=== PATIENT | female | born 1950 | race Caucasian/White ===

== ENCOUNTER 2020-11-01 15:43 | Emergency (ER) | payer MEDICARE, SELFPAY ==
[2020-11-01 16:00] VITALS: BP 184/87; PULSE 68; RESP 19; TEMP 36.7; O2SAT 98; BMI 31.1
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
[2020-11-01 18:23] VITALS: BP 188/88; PULSE 70; RESP 18; TEMP 36.9; O2SAT 96
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
[2020-11-01 19:30] VITALS: BP 191/86; PULSE 66; RESP 16; O2SAT 96
[2020-11-01] MEDS: ACETAMINOPHEN 325 MG TABLET 975 MG PO (19:40)
--- NOTE | 2020-11-01 20:22 | PC.NURSE ---
Pt noted with SBP 190's, pt denied HU. Reported pain to hands with movement. Dr Lantigua notified, plan to medicate with tylenol and defer discharge. On reassessment, BP 166/78. Pt cleared for discharge by Dr Lantigua.
[2020-11-01 20:23] VITALS: BP 166/78; PULSE 66; RESP 16; O2SAT 97
== END 2020-11-01 20:26 | disposition home or self-care (01) ==
PROVIDERS: Emergency Provider Emergency Medicine; PCP Internal Medicine
DX: S09.90XA Unspecified injury of head, initial encounter (principal); S00.81XA Abrasion of other part of head, initial encounter; I10 Essential (primary) hypertension; V19.9XXA Pedal cyclist (driver) (passenger) injured in unspecified traffic accident, initial encounter
CPT/HCPCS: 70450; 73110; 99283; 99284